=== PATIENT | male | born 1965 | race Caucasian/White ===

== ENCOUNTER → 2016-12-25 | Day surgery (SDC) | payer OTHER, BC ==
[~2016-12-25] MED LIST: ATEN1TAB73 PO; HYDR-3533 PO; LIDOCAINE HCL 1% 30 ML VIAL INFIL ONE; METH0.35 IJ; MONT10TA2 PO; OMEP20TA PO; PLAQ200T PO; PROPOFOL 200 MG/20 ML AMP IV ONE; SODIUM CHLORIDE 0.9% 10 ML VIAL ONE; TRIAMCINOLONE ACETONIDE 40 MG/ML VIAL NERV BLOCK ONE; ZANT150T2 PO; methylPREDNISolone ACETATE 40 MG/ML VIAL IM ONE
--- NOTE | 2016-12-28 08:07 | M6 ---
cc: SIMEON WHITEHEAD M.D. DATE: 12/25/2016 DATE OF : 1965 PROCEDURE Fluoroscopically guided left piriformis/sciatic nerve injection. PROCEDURE NOTE History and physical was completed and signed. Consent was signed. Procedure site was marked. Medications were listed and reconciled. Pain score was recorded. Allergies were noted. Timeout was taken. Fluoroscopy time was recorded where applicable. Sedation was administered or directed by Dr. Whitehead. The patient was given oxygen. The patient was monitored by a registered nurse. Total procedure time was greater than 15 minutes. An IV was started, blood pressure cuff, pulse oximeter and EKG were applied. The patient was placed in the prone position on a Osvaldo table, sedated with small amounts of propofol titrated to effect. Vital signs were monitored and remained stable throughout the procedure. The left buttocks was prepped with alcohol and 10% Betadine solution, draped with sterile drapes. Fluoroscopy was used to visualize the left acetabulum. Then a 3-1/2 inch, 22-gauge spinal needle was advanced under fluoroscopic guidance down to the cephalad portion of the acetabulum near the sciatic notch. There was negative aspiration for blood or any other type of fluid and the patient was given 10 mL of 0.5% Xylocaine, 40 mg of Depo-Medrol and 20 mg of Kenalog. Following the procedure the patient was taken to the recovery room with stable vital signs, neurologically intact. He will be evaluated immediately and with follow-up to determine if he has a subjective decrease in his pain and a corresponding objective increase in his functional capabilities. WMD KRIS Johnson/ROCKY /8:05 AM /8:04 AM
== END | disposition home or self-care (01) ==
LOC: PHSDC 06:40
PROVIDERS: ATTEND Pain Medicine Interventional Pain Medicine
DX: M54.5 Low back pain (principal)
CPT/HCPCS: 64445; 77003; 99152; J1030; J3301